=== PATIENT | male | born 1980 | race Caucasian/White ===

== ENCOUNTER 2019-06-21 18:25 | Observation (INO) | payer BC, OTHER ==
[2019-06-21] MEDS ORDERED: Sodium Chloride 0.9% 1,000 ML IV ONE ×2 (19:18→22:47)
[2019-06-21] MEDS ORDERED: Ondansetron 4 MG/2 ML SDV IVPUSH ONE ×2 (19:18→22:47)
[2019-06-21] MEDS ORDERED: Ketorolac 30 MG/ML SDV IVPUSH ONE (19:18)
--- NOTE | 2019-06-21 19:21 | EDM.PDOC ---
ED HPI GENERAL MEDICAL PROBLEM - General Chief Complaint: Abdominal Pain Stated Complaint: ABD PAIN Time Seen by Provider: 06/21/19 19:13 - History of Present Illness INITIAL COMMENTS - FREE TEXT/NARRATIVE: HISTORY AND PHYSICAL: History of present illness: Patient is a 39-year-old white male who presents with concern of abdominal pain 3 days he states is primarily across his upper abdomen he has been somewhat bloated he denies vomiting or diarrhea he states there has been a GI bug going through the house at home and his children have suffered from similar he denies fever chills chest pain shortness breath or other concern Review of systems: As per history of present illness and below otherwise all systems reviewed and negative. Past medical history: As per history of present illness and as reviewed below otherwise noncontributory. Surgical history: As per history of present illness and as reviewed below otherwise noncontributory. Social history: No reported history of drug or alcohol abuse. Family history: As per history of present illness and as reviewed below otherwise noncontributory. Physical exam: HEENT: Atraumatic, normocephalic, pupils reactive, negative for conjunctival pallor or scleral icterus, mucous membranes moist, throat clear, neck supple, nontender, trachea midline. Lungs: Clear to auscultation, breath sounds equal bilaterally, chest nontender. Heart: S1S2, regular, negative for clicks, rubs, or JVD. Abdomen: Soft, protuberant with mild tenderness across upper abdomen nonlocalized no rebound no guarding. Negative for masses or hepatosplenomegaly. Negative for costovertebral tenderness. Pelvis: Stable nontender. Genitourinary: Deferred. Rectal: Deferred. Extremities: Atraumatic, negative for cords or calf pain. Neurovascular unremarkable. Neuro: Awake, alert, oriented. Cranial nerves II through XII unremarkable. Cerebellum unremarkable. Motor and sensory unremarkable throughout. Exam nonfocal. Diagnostics: CBC CMP lipase acute abdominal series with chest x-ray EKG abdominal ultrasound [employer]: Saline 1 L bolus Zofran 4 mg IV Toradol 30 mg IV Impression: #1 upper abdominal pain Definitive disposition and diagnosis as appropriate pending reevaluation and review of above. Abdomen Pain Score (Numeric/FACES): 8 - Related Data Allergies Allergy/AdvReac Type Severity Reaction Status Date / Time No Known Allergies Allergy Verified 06/21/19 18:59 Home Meds: Home Meds Lisinopril [Prinivil] 10 mg PO DAILY 06/21/19 [History] Past Medical History HEENT History: Reports: None Cardiovascular History: Reports: Hypertension Respiratory History: Reports: None Gastrointestinal History: Reports: None Genitourinary History: Reports: None Musculoskeletal History: Reports: None Neurological History: Reports: None Psychiatric History: Reports: None Endocrine/Metabolic History: Reports: None Hematologic History: Reports: None Immunologic History: Reports: None Oncologic (Cancer) History: Reports: None Dermatologic History: Reports: None - Infectious Disease History Infectious Disease History: Reports: None - Past Surgical History Head Surgeries/Procedures: Reports: None Social & Family History - Tobacco Use Smoking Status *Q: Never Smoker Second Hand Smoke Exposure: No - Caffeine Use Caffeine Use: Reports: None - Recreational Drug Use Recreational Drug Use: No ED ROS GENERAL - Review of Systems Review Of Systems: Comprehensive ROS is negative, except as noted in HPI. ED EXAM, GENERAL - Physical Exam Exam: See Below (See dictation) Course - Vital Signs Last Recorded V/S: Last Vital Signs Temp 36.6 C 06/21/19 18:57 Pulse 85 06/21/19 18:57 Resp 20 06/21/19 18:57 BP 168/91 H 06/21/19 18:57 Pulse Ox 98 06/21/19 18:57 - Orders/Labs/Meds Orders: Active Orders 24 hr Category Date Time Status EKG Documentation Completion [RC] STAT Care 06/21/19 19:17 Active Pulse Oximetry [RC] ASDIRECTED Care 06/21/19 19:17 Active Labs: Laboratory Tests 06/21/19 06/21/19 06/21/19 Range/Units 19:15 19:20 19:20 WBC 14.80 H (4.0-11.0) K/uL RBC 5.43 (4.50-5.90) M/uL Hgb 15.8 (13.0-17.0) g/dL Hct 46.3 (38.0-50.0) % MCV 85.3 (80.0-98.0) fL MCH 29.1 (27.0-32.0) pg MCHC 34.1 (31.0-37.0) g/dL RDW Std Deviation 38.6 (28.0-62.0) fl RDW Coeff of Indira 13 (11.0-15.0) % Plt Count 186 (150-400) K/uL MPV 10.40 (7.40-12.00) fL Neut % (Auto) 73.9 (48.0-80.0) % Lymph % (Auto) 12.7 L (16.0-40.0) % [place] % (Auto) 11.6 (0.0-15.0) % Eos % (Auto) 1.6 (0.0-7.0) % Baso % (Auto) 0.2 (0.0-1.5) % Neut # (Auto) 10.9 H (1.4-5.7) K/uL Lymph # (Auto) 1.9 (0.6-2.4) K/uL [place] # (Auto) 1.7 H (0.0-0.8) K/uL Eos # (Auto) 0.2 (0.0-0.7) K/uL Baso # (Auto) 0.0 (0.0-0.1) K/uL Nucleated RBC % 0.0 /100WBC Nucleated RBCs # 0 K/uL INR 1.00 Sodium (136-148) mmol/L Potassium (3.5-5.1) mmol/L Chloride (98-107) mmol/L Carbon Dioxide (21.0-32.0) mmol/L BUN (7.0-18.0) mg/dL Creatinine (0.8-1.3) mg/dL Est Cr Clr Drug Dosing mL/min Estimated GFR (MDRD) ml/min Glucose (74-106) mg/dL Calcium (8.5-10.1) mg/dL Total Bilirubin (0.2-1.0) mg/dL AST (15-37) IU/L ALT (14-63) IU/L Alkaline Phosphatase (46-116) U/L Total Protein (6.4-8.2) g/dL Albumin (3.4-5.0) g/dL Globulin (2.6-4.0) g/dL Albumin/Globulin Ratio (0.9-1.6) Lipase (73-393) U/L Urine Color YELLOW Urine Appearance CLOUDY Urine pH 7.0 (5.0-8.0) Ur Specific [place] 1.020 (1.001-1.035) Urine Protein 30 H (NEGATIVE) mg/dL Urine Glucose (UA) NEGATIVE (NEGATIVE) mg/dL Urine Ketones NEGATIVE (NEGATIVE) mg/dL Urine Occult Blood NEGATIVE (NEGATIVE) Urine Nitrite NEGATIVE (NEGATIVE) Urine Bilirubin NEGATIVE (NEGATIVE) Urine Urobilinogen 0.2 (<2.0) EU/dL Ur Leukocyte Esterase NEGATIVE (NEGATIVE) Urine RBC 0-2 (0-2/HPF) Urine WBC 3-5 (0-5/HPF) Ur Epithelial Cells FEW (NONE-FEW) Amorphous Sediment HEAVY (NEGATIVE) Urine Bacteria FEW (NEGATIVE) Urine Mucus MODERATE (NONE-MOD) 06/21/19 Range/Units 19:20 WBC (4.0-11.0) K/uL RBC (4.50-5.90) M/uL Hgb (13.0-17.0) g/dL Hct (38.0-50.0) % MCV (80.0-98.0) fL MCH (27.0-32.0) pg MCHC (31.0-37.0) g/dL RDW Std Deviation (28.0-62.0) fl RDW Coeff of Indira (11.0-15.0) % Plt Count (150-400) K/uL MPV (7.40-12.00) fL Neut % (Auto) (48.0-80.0) % Lymph % (Auto) (16.0-40.0) % [place] % (Auto) (0.0-15.0) % Eos % (Auto) (0.0-7.0) % Baso % (Auto) (0.0-1.5) % Neut # (Auto) (1.4-5.7) K/uL Lymph # (Auto) (0.6-2.4) K/uL [place] # (Auto) (0.0-0.8) K/uL Eos # (Auto) (0.0-0.7) K/uL Baso # (Auto) (0.0-0.1) K/uL Nucleated RBC % /100WBC Nucleated RBCs # K/uL INR Sodium 138 (136-148) mmol/L Potassium 3.7 (3.5-5.1) mmol/L Chloride 102 (98-107) mmol/L Carbon Dioxide 26.7 (21.0-32.0) mmol/L BUN 8 (7.0-18.0) mg/dL Creatinine 1.0 (0.8-1.3) mg/dL Est Cr Clr Drug Dosing 104.58 mL/min Estimated GFR (MDRD) > 60.0 ml/min Glucose 119 H (74-106) mg/dL Calcium 8.6 (8.5-10.1) mg/dL Total Bilirubin 0.7 (0.2-1.0) mg/dL AST 12 L (15-37) IU/L ALT 42 (14-63) IU/L Alkaline Phosphatase 61 (46-116) U/L Total Protein 8.0 (6.4-8.2) g/dL Albumin 4.0 (3.4-5.0) g/dL Globulin 4.0 (2.6-4.0) g/dL Albumin/Globulin Ratio 1.0 (0.9-1.6) Lipase 2623 H (73-393) U/L Urine Color Urine Appearance Urine pH (5.0-8.0) Ur Specific [place] (1.001-1.035) Urine Protein (NEGATIVE) mg/dL Urine Glucose (UA) (NEGATIVE) mg/dL Urine Ketones (NEGATIVE) mg/dL Urine Occult Blood (NEGATIVE) Urine Nitrite (NEGATIVE) Urine Bilirubin (NEGATIVE) Urine Urobilinogen (<2.0) EU/dL Ur Leukocyte Esterase (NEGATIVE) Urine RBC (0-2/HPF) Urine WBC (0-5/HPF) Ur Epithelial Cells (NONE-FEW) Amorphous Sediment (NEGATIVE) Urine Bacteria (NEGATIVE) Urine Mucus (NONE-MOD) Meds: Medications Discontinued Medications Generic Name Dose Route Start Last Admin Trade Name Freq PRN Reason Stop Dose Admin Sodium Chloride 1,000 mls @ 999 mls/hr 06/21/19 19:18 06/21/19 19:27 Normal Saline IV 06/21/19 20:18 999 mls/hr STAT ONE Administration Iopamidol 100 ml 06/21/19 21:55 06/21/19 21:56 Isovue-370 (76%) IVPUSH 06/21/19 21:56 100 ml ONETIME STA Administration Ketorolac Tromethamine 30 mg 06/21/19 19:18 06/21/19 19:28 Toradol IVPUSH 06/21/19 19:19 30 mg ONETIME ONE Administration Ondansetron HCl 4 mg 06/21/19 19:18 06/21/19 19:27 Zofran IVPUSH 06/21/19 19:19 4 mg ONETIME ONE Administration Departure - Departure Time of Disposition: 22:47 Disposition: Refer to Observation Condition: Good Clinical Impression: Abdominal pain, Pancreatitis - Discharge Information Referrals: Antoine Taylor MD [Primary Care Provider] - Forms: ED Department Discharge - My Orders Last 24 Hours: My Active Orders 06/21/19 19:17 EKG Documentation Completion [RC] STAT Pulse Oximetry [RC] ASDIRECTED - Assessment/Plan Last 24 Hours: My Active Orders 06/21/19 19:17 EKG Documentation Completion [RC] STAT Pulse Oximetry [RC] ASDIRECTED
[2019-06-21 19:57] LABS: BLOOD UREA NITROGEN,BUN 8 mg/dL (7.0-18.0); CARBON DIOXIDE,CO2 26.7 mmol/L (21.0-32.0); CHLORIDE,CL 102 mmol/L (98-107); GLUCOSE RANDOM 119 mg/dL (74-106); POTASSIUM,K 3.7 mmol/L (3.5-5.1); SODIUM,NA 138 mmol/L (136-148)
--- NOTE | 2019-06-21 20:07 | US ---
INDICATION: Gastric pain for the past few days. COMPARISON: None available. TECHNIQUE: Ultrasound examination of the right upper quadrant was performed. FINDINGS: There is normal appearance of the gallbladder, with no sign of cholelithiasis or acute cholecystitis. There is no sign of gallbladder wall thickening or pericholecystic fluid. A sonographic Teague sign is not present. The common bile duct is normal in caliber at 2 mm. The pancreatic head and body were examined, and these are normal in appearance. The abdominal aorta and visualized portions of the inferior vena cava are normal in appearance. The liver shows no sign of mass or contour abnormality, and there is no sign of ascites. Increased hepatic echogenicity is consistent with fatty infiltration of the liver. The right kidney is unremarkable. IMPRESSION: Fatty infiltration of the liver. Otherwise normal right upper quadrant ultrasound. Dictated by Konrad Carpio MD @ Jun 21 2019 7:59PM Signed by Dr. Konrad Carpio @ Jun 21 2019 8:07PM
[2019-06-21 20:18] LABS: LIPASE 2623 U/L (73-393)
--- NOTE | 2019-06-21 20:19 | CR ---
INDICATION: Abdominal pain TECHNIQUE: Abdomen 3 view. COMPARISON: None FINDINGS: Bowel: Bowel pattern is normal. Colonic fecal retention. Soft tissues: No sign of free air. No sign of soft tissue mass. No suspicious calcifications. Bones: Unremarkable for age. IMPRESSION: Colonic fecal retention. Dictated by Alexander Das MD @ 06/21/2019 8:16:36 PM Dictated by: Alexander Das MD @ 06/21/2019 20:16:46 (Electronically Signed)
[2019-06-21] MEDS ORDERED: Iopamidol 755 Mg/ML 100 ML Bottle IVPUSH STA (21:55)
--- NOTE | 2019-06-21 22:31 | CT ---
INDICATION: Abdominal pain, no bowel movement in a few days TECHNIQUE: CT abdomen and pelvis acquired with IV contrast. COMPARISON: None FINDINGS: Lower chest: Unremarkable. Liver: Hepatic steatosis. Spleen: Unremarkable. Pancreas: Fat stranding adjacent to the pancreatic head. Correlate with abnormal amylase and lipase. Gallbladder and bile ducts: Unremarkable. Kidneys: Unremarkable. Adrenal glands: Unremarkable. GI tract: Thickening of 2nd 3rd portion of the duodenum. Appendix is not definitely demonstrated. Colonic fecal retention involving the ascending colon. Vascular structures: Unremarkable. Lymph nodes: Unremarkable. Miscellaneous: Fat containing umbilical hernia. No free air or significant free fluid. Pelvic Organs: Unremarkable. Bones: Unremarkable for age. IMPRESSION: Peripancreatic fat stranding adjacent to the pancreatic head with thickening of the adjacent 2nd 3rd portions of the duodenum. Correlate with abnormal amylase and lipase for pancreatitis. Hepatic steatosis. Colonic fecal retention involving the ascending colon. Dictated by Alexander Das MD @ 06/21/2019 10:29:15 PM Please note that all CT scans at this facility use dose modulation, iterative reconstruction, and/or weight-based dosing when appropriate to reduce radiation dose to as low as reasonably achievable. Dictated by: Alexander Das MD @ 06/21/2019 22:29:30 (Electronically Signed)
[2019-06-21] MEDS ORDERED: HYDROmorphone 1 MG/ML Syringe IVPUSH ONE (22:47)
[2019-06-22] MEDS ORDERED: Albuterol/Ipratropium 3.0-0.5 MG/3 ML Neb Soln NEB PRN (00:06)
[2019-06-22] MEDS ORDERED: Sodium Chloride 0.9% 1,000 ML IV SCH (00:15)
[2019-06-22] MEDS: Heparin Sodium 5,000 Units/ML Vial SUBCUT SCH ×3 (00:42→16:16)
[2019-06-22] MEDS: Morphine 2 MG/ML Syringe IVPUSH PRN ×2 (02:51→05:13)
[2019-06-22] MEDS: Ondansetron 4 MG/2 ML SDV IVPUSH PRN ×2 (03:02→23:12)
[2019-06-22 05:52] LABS: BLOOD UREA NITROGEN,BUN 7 mg/dL (7.0-18.0); CARBON DIOXIDE,CO2 26.1 mmol/L (21.0-32.0); CHLORIDE,CL 104 mmol/L (98-107); GLUCOSE RANDOM 116 mg/dL (74-106); POTASSIUM,K 3.9 mmol/L (3.5-5.1); SODIUM,NA 139 mmol/L (136-148)
--- NOTE | 2019-06-22 08:04 | PCM.HP.2 ---
H&P History of Present Illness - General Date of Service: 06/22/19 Admit Problem/Dx: Admission Diagnosis/Problem Admission Diagnosis/Problem Pancreatitis Source of Information: Patient History Limitations: Reports: No Limitations - History of Present Illness Initial Comments - Free Text/Narative: This 39 year old male with pmh of hypertension prsented to the ED with complaints of abdominal pain x 3 days. He reports this pain is located in his upper abdomen and spreads to the back. He reports mild nausea, no diarrhea. He reports his children were sick with a 24 hour GI bug a few days ago but they are feeling better now. He denies chest pain or SOB. No black of bloody BMs, reports constipation since Wednesday, which is not normal for him. He denies fevers , chills or URI symptoms. He denies alcohol use, no recreational drug use and no tobacco use. In the ED Leukocytosis noted at 14,800, BMP WNL. Lipase elevated at 2623. CXR revealed for acute cardiopulmonary process, colonic retention noted. Abd US obtained which was negative. CT abd/pelvis obtained which revealed pancreatic fat stranding and thickening within the duodenem. He was given IVFs in the ED along with Dilaudid for pain. He was admitted for acute pancreatitis. PCP, Dr Taylor Abdomen Pain Score (Numeric/FACES): 8 - Related Data Allergies/Adverse Reactions: Allergies Allergy/AdvReac Type Severity Reaction Status Date / Time No Known Allergies Allergy Verified 06/22/19 00:20 Home Medications: Home Meds Lisinopril [Prinivil] 10 mg PO DAILY 06/21/19 [History] Past Medical History HEENT History: Reports: None Cardiovascular History: Reports: Hypertension (started on Lisinopril 2 weeks ago for HTN). Denies: Afib, CAD, PA Respiratory History: Reports: None. Denies: COPD Gastrointestinal History: Reports: None Genitourinary History: Reports: None Musculoskeletal History: Reports: None Neurological History: Reports: None Psychiatric History: Reports: None Endocrine/Metabolic History: Reports: None. Denies: Diabetes, Type II Hematologic History: Reports: None Immunologic History: Reports: None Oncologic (Cancer) History: Reports: None Dermatologic History: Reports: None - Infectious Disease History Infectious Disease History: Reports: None - Past Surgical History Head Surgeries/Procedures: Reports: None Social & Family History - Family History Cardiac: Reports: Hypertension - Tobacco Use Smoking Status *Q: Never Smoker Second Hand Smoke Exposure: No - Caffeine Use Caffeine Use: Reports: Soda - Alcohol Use Alcohol Use History: No Alcohol Use Frequency: Rarely, Socially - Recreational Drug Use Recreational Drug Use: No - Living Situation & Occupation Living situation: Reports: Occupation: Employed H&P Review of Systems - Review of Systems: Review Of Systems: See Below General: Reports: Malaise. Denies: Fever, Chills HEENT: Reports: No Symptoms. Denies: Headaches, Sinus Congestion, Vertigo Pulmonary: Reports: No Symptoms. Denies: Shortness of Breath Cardiovascular: Reports: No Symptoms. Denies: Chest Pain Gastrointestinal: Reports: Abdominal Pain (upper epigastric and R UQ), Constipation, Decreased Appetite, Nausea. Denies: Black Stool, Bloody Stool, Diarrhea, Vomiting Genitourinary: Reports: No Symptoms. Denies: Dysuria, Frequency Musculoskeletal: Reports: No Symptoms Skin: Reports: No Symptoms Psychiatric: Reports: No Symptoms Neurological: Reports: No Symptoms Hematologic/Lymphatic: Reports: No Symptoms Immunologic: Reports: No Symptoms Exam - Exam Exam: See Below - Vital Signs Vital Signs: Last Vital Signs Temp 97.8 F 06/22/19 04:06 Pulse 80 06/22/19 04:06 Resp 19 06/22/19 04:06 BP 156/83 H 06/22/19 04:06 Pulse Ox 96 06/22/19 04:06 Weight: 129.274 kg - Exam General: Alert, Oriented, Cooperative Neck: Supple, Trachea Midline Lungs: Clear to Auscultation, Normal Respiratory Effort GI/Abdominal Exam: Normal Bowel Sounds, Soft, Tender (RUQ and epigastric region) Back Exam: Normal Inspection, Full Range of Motion Extremities: Normal Inspection, Normal Range of Motion, Non-Tender, No Pedal Edema Neuro Extensive - Mental Status: Alert, Oriented x3 Neuro Extensive - Motor, Sensory, Reflexes: CN II-XII Intact - Patient Data Lab Results Last 24 hrs: Laboratory Results - last 24 hr 06/21/19 06/21/19 06/21/19 Range/Units 19:15 19:20 19:20 WBC 14.80 H (4.0-11.0) K/uL RBC 5.43 (4.50-5.90) M/uL Hgb 15.8 (13.0-17.0) g/dL Hct 46.3 (38.0-50.0) % MCV 85.3 (80.0-98.0) fL MCH 29.1 (27.0-32.0) pg MCHC 34.1 (31.0-37.0) g/dL RDW Std Deviation 38.6 (28.0-62.0) fl RDW Coeff of Indira 13 (11.0-15.0) % Plt Count 186 (150-400) K/uL MPV 10.40 (7.40-12.00) fL Neut % (Auto) 73.9 (48.0-80.0) % Lymph % (Auto) 12.7 L (16.0-40.0) % [place] % (Auto) 11.6 (0.0-15.0) % Eos % (Auto) 1.6 (0.0-7.0) % Baso % (Auto) 0.2 (0.0-1.5) % Neut # (Auto) 10.9 H (1.4-5.7) K/uL Lymph # (Auto) 1.9 (0.6-2.4) K/uL [place] # (Auto) 1.7 H (0.0-0.8) K/uL Eos # (Auto) 0.2 (0.0-0.7) K/uL Baso # (Auto) 0.0 (0.0-0.1) K/uL Nucleated RBC % 0.0 /100WBC Nucleated RBCs # 0 K/uL INR 1.00 Sodium (136-148) mmol/L Potassium (3.5-5.1) mmol/L Chloride (98-107) mmol/L Carbon Dioxide (21.0-32.0) mmol/L BUN (7.0-18.0) mg/dL Creatinine (0.8-1.3) mg/dL Est Cr Clr Drug Dosing mL/min Estimated GFR (MDRD) ml/min Glucose (74-106) mg/dL Calcium (8.5-10.1) mg/dL Phosphorus (2.6-4.7) mg/dL Magnesium (1.8-2.4) mg/dL Total Bilirubin (0.2-1.0) mg/dL AST (15-37) IU/L ALT (14-63) IU/L Alkaline Phosphatase (46-116) U/L Total Protein (6.4-8.2) g/dL Albumin (3.4-5.0) g/dL Globulin (2.6-4.0) g/dL Albumin/Globulin Ratio (0.9-1.6) Lipase (73-393) U/L Urine Color YELLOW Urine Appearance CLOUDY Urine pH 7.0 (5.0-8.0) Ur Specific [place] 1.020 (1.001-1.035) Urine Protein 30 H (NEGATIVE) mg/dL Urine Glucose (UA) NEGATIVE (NEGATIVE) mg/dL Urine Ketones NEGATIVE (NEGATIVE) mg/dL Urine Occult Blood NEGATIVE (NEGATIVE) Urine Nitrite NEGATIVE (NEGATIVE) Urine Bilirubin NEGATIVE (NEGATIVE) Urine Urobilinogen 0.2 (<2.0) EU/dL Ur Leukocyte Esterase NEGATIVE (NEGATIVE) Urine RBC 0-2 (0-2/HPF) Urine WBC 3-5 (0-5/HPF) Ur Epithelial Cells FEW (NONE-FEW) Amorphous Sediment HEAVY (NEGATIVE) Urine Bacteria FEW (NEGATIVE) Urine Mucus MODERATE (NONE-MOD) 06/21/19 06/22/19 06/22/19 Range/Units 19:20 05:25 05:25 WBC 13.88 H (4.0-11.0) K/uL RBC 5.04 (4.50-5.90) M/uL Hgb 14.3 (13.0-17.0) g/dL Hct 43.3 (38.0-50.0) % MCV 85.9 (80.0-98.0) fL MCH 28.4 (27.0-32.0) pg MCHC 33.0 (31.0-37.0) g/dL RDW Std Deviation 39.4 (28.0-62.0) fl RDW Coeff of [place]ira 13 (11.0-15.0) % Plt Count 173 (150-400) K/uL MPV 10.10 (7.40-12.00) fL Neut % (Auto) 73.5 (48.0-80.0) % Lymph % (Auto) 12.8 L (16.0-40.0) % [place] % (Auto) 11.7 (0.0-15.0) % Eos % (Auto) 1.9 (0.0-7.0) % Baso % (Auto) 0.1 (0.0-1.5) % Neut # (Auto) 10.2 H (1.4-5.7) K/uL Lymph # (Auto) 1.8 (0.6-2.4) K/uL [place] # (Auto) 1.6 H (0.0-0.8) K/uL Eos # (Auto) 0.3 (0.0-0.7) K/uL Baso # (Auto) 0.0 (0.0-0.1) K/uL Nucleated RBC % 0.0 /100WBC Nucleated RBCs # 0 K/uL INR Sodium 138 139 (136-148) mmol/L Potassium 3.7 3.9 (3.5-5.1) mmol/L Chloride 102 104 (98-107) mmol/L Carbon Dioxide 26.7 26.1 (21.0-32.0) mmol/L BUN 8 7 (7.0-18.0) mg/dL Creatinine 1.0 0.9 (0.8-1.3) mg/dL Est Cr Clr Drug Dosing 104.58 116.20 mL/min Estimated GFR (MDRD) > 60.0 > 60.0 ml/min Glucose 119 H 116 H (74-106) mg/dL Calcium 8.6 8.2 L (8.5-10.1) mg/dL Phosphorus 2.5 L (2.6-4.7) mg/dL Magnesium 2.0 (1.8-2.4) mg/dL Total Bilirubin 0.7 (0.2-1.0) mg/dL AST 12 L (15-37) IU/L ALT 42 (14-63) IU/L Alkaline Phosphatase 61 (46-116) U/L Total Protein 8.0 (6.4-8.2) g/dL Albumin 4.0 (3.4-5.0) g/dL Globulin 4.0 (2.6-4.0) g/dL Albumin/Globulin Ratio 1.0 (0.9-1.6) Lipase 2623 H (73-393) U/L Urine Color Urine Appearance Urine pH (5.0-8.0) Ur Specific [place] (1.001-1.035) Urine Protein (NEGATIVE) mg/dL Urine Glucose (UA) (NEGATIVE) mg/dL Urine Ketones (NEGATIVE) mg/dL Urine Occult Blood (NEGATIVE) Urine Nitrite (NEGATIVE) Urine Bilirubin (NEGATIVE) Urine Urobilinogen (<2.0) EU/dL Ur Leukocyte Esterase (NEGATIVE) Urine RBC (0-2/HPF) Urine WBC (0-5/HPF) Ur Epithelial Cells (NONE-FEW) Amorphous Sediment (NEGATIVE) Urine Bacteria (NEGATIVE) Urine Mucus (NONE-MOD) Result Diagrams: 06/22/19 05:25 06/22/19 05:25 - Problem List (1) Pancreatitis SNOMED Code(s): 67279461 ICD Code: K85.90 - ACUTE PANCREATITIS WITHOUT NECROSIS OR INFECTION, UNSP Status: Acute Current Visit: Yes Qualifiers: Chronicity: acute Pancreatitis type: unspecified pancreatitis type (2) Abdominal pain SNOMED Code(s): 63678958 ICD Code: R10.9 - UNSPECIFIED ABDOMINAL PAIN Status: Acute Current Visit : Yes (3) HTN (hypertension) SNOMED Code(s): 24280237 ICD Code: I10 - ESSENTIAL (PRIMARY) HYPERTENSION Status: Chronic Current Visit: Yes (4) Obesity SNOMED Code(s): 753579177, 716092160 ICD Code: E66.9 - OBESITY, UNSPECIFIED Status: Chronic Current Visit: Yes Problem List Initiated/Reviewed/Updated: Yes Orders Last 24hrs: Active Orders 24 hr Category Date Time Status Patient Status [ADT] Stat ADT 06/21/19 22:47 Active Ambulate [RC] ASDIRECTED Care 06/22/19 00:06 Active Blood Glucose Check, Bedside [RC] WITHMEALSANDBED Care 06/22/19 00:06 Active Influenza Vaccine Charge [RC] .DISCHARGE Care 06/22/19 02:32 Active Oxygen Therapy [RC] PRN Care 06/22/19 00:06 Active Pulse Oximetry [RC] ASDIRECTED Care 06/21/19 19:17 Active RT Aerosol Therapy [RC] ASDIRECTED Care 06/22/19 00:09 Active VTE/DVT Education [RC] PER UNIT ROUTINE Care 06/22/19 00:06 Active Vital Signs [RC] Q4H Care 06/22/19 00:06 Active Nothing per Oral Now Diet [DIET] Diet 06/22/19 Breakfast Active LIPASE [CHEM] Routine Lab 06/22/19 08:00 Ordered LIPID PANEL [CHEM] Routine Lab 06/22/19 08:00 Ordered Albuterol/Ipratropium [DuoNeb 3.0-0.5 MG/3 ML] Med 06/22/19 00:06 Active 3 ml NEB Q4HRRT PRN Bisacodyl [Dulcolax] Med 06/22/19 08:03 Ordered 10 mg RECTAL DAILY PRN FLU Vacc [id number](6MOS+)/PF [Fluzone Quad Med 06/22/19 10:00 Once Syringe] 60 mcg IM .ONCE ONE HYDROmorphone [Dilaudid] Med 06/22/19 08:02 Ordered 1 mg IVPUSH Q3H PRN Heparin Sodium Med 06/22/19 00:15 Active 5,000 units SUBCUT Q8H Ketorolac [Toradol] Med 06/22/19 06:09 Active 15 mg IVPUSH Q6H PRN Ondansetron [Zofran] Med 06/22/19 00:06 Active 4 mg IVPUSH Q4H PRN Pantoprazole [ProTONIX IV] 40 mg Med 06/22/19 09:00 Active Sodium Chloride 0.9% [Normal Saline] 10 ml IV DAILY Sodium Chloride 0.9% [Normal Saline] 1,000 ml Med 06/22/19 08:02 Ordered IV ASDIRECTED Resuscitation Status Routine Resus Stat 06/22/19 00:06 Ordered Medication Orders Albuterol/Ipratropium (Duoneb 3.0-0.5 Mg/3 Ml) 3 ml NEB Q4HRRT PRN PRN Reason: Shortness Of Breath/wheezing Bisacodyl (Dulcolax) 10 mg RECTAL DAILY PRN PRN Reason: Constipation Heparin Sodium (Porcine) (Heparin Sodium) 5,000 units SUBCUT Q8H [facility] Last Admin: 06/22/19 00:42 Dose: 5,000 units Hydromorphone HCl (Dilaudid) 1 mg IVPUSH Q3H PRN PRN Reason: Pain Pantoprazole Sodium 40 mg/ (Sodium Chloride) 10 mls @ 300 mls/hr IV DAILY TOMMIE Sodium Chloride (Normal Saline) 1,000 mls @ 200 mls/hr IV ASDIRECTED TOMMIE Influenza Virus Vaccine (Fluzone Quad [id number] Syringe) 60 mcg IM .ONCE ONE Stop: 06/22/19 10:01 Ketorolac Tromethamine (Toradol) 15 mg IVPUSH Q6H PRN PRN Reason: Pain (severe 7-10) Stop: 06/27/19 06:09 Ondansetron HCl (Zofran) 4 mg IVPUSH Q4H PRN PRN Reason: Nausea/Vomiting Last Admin: 06/22/19 03:02 Dose: 4 mg Assessment/Plan Comment:: THis 39 year old male admitted with abdominal pain found to have acute pancreatitis 1. Acute pancreatitis: No gallstone or cholecystitis, Triglycerides WNL. Had a couple beers a few days ago, otherwise drinks very rarely. Consider duodenitis from viral gastroenteritis or drug induced, he was recently started on Lisinopril 2 weeks ago. Will discontinue Lisinopril. Start Amlodipine 5 mg and monitor. Increase IVF to NS 200 l hr. Lipase improved since admission, 1500 today. Will continue bowel rest as he continues to have abdominal pain. Will give dulcolax supp for constipation. repeat labwork in am. 2. HTN: Slighlty elevated, may be pain induced. Will DC Lisinopril. Start Amlodipine 5 mg. VTE prophylaxis: SCDs. Dispo: 1-2 days pending improvement. - Mortality Measure Prognosis:: Good
[2019-06-22] MEDS: Ketorolac 15 MG/ML SDV IVPUSH PRN ×3 (08:21→20:26)
[2019-06-22] MEDS: Sodium Chloride 0.9% 1,000 ML IV SCH ×4 (08:41→23:04)
[2019-06-22] MEDS ORDERED: FLU Vacc QS2019-20(6MOS+)/PF 60 MCG/0.5 ML SYRINGE IM ONE (10:00)
[2019-06-22] MEDS: Pantoprazole 40 MG in Sodium Chloride 0.9% 10 ML IV SCH (10:07)
[2019-06-22] MEDS: Bisacodyl 10 MG Supp RECTAL PRN (11:00)
[2019-06-22] MEDS: HYDROmorphone 1 MG/ML Syringe IVPUSH PRN ×3 (11:28→23:54)
[2019-06-22] MEDS: amLODIPine 5 MG Tab PO SCH (11:53)
[2019-06-23] MEDS: Heparin Sodium 5,000 Units/ML Vial SUBCUT SCH ×4 (00:03→23:35)
[2019-06-23] MEDS: Ketorolac 15 MG/ML SDV IVPUSH PRN ×2 (02:49→09:37)
[2019-06-23] MEDS: Sodium Chloride 0.9% 1,000 ML IV SCH ×4 (03:45→22:05)
[2019-06-23] MEDS: HYDROmorphone 1 MG/ML Syringe IVPUSH PRN ×4 (05:22→23:35)
[2019-06-23 06:34] LABS: BLOOD UREA NITROGEN,BUN 13 mg/dL (7.0-18.0); CARBON DIOXIDE,CO2 26.9 mmol/L (21.0-32.0); CHLORIDE,CL 107 mmol/L (98-107); GLUCOSE RANDOM 102 mg/dL (74-106); LIPASE 894 U/L (73-393); POTASSIUM,K 4.2 mmol/L (3.5-5.1); SODIUM,NA 140 mmol/L (136-148)
--- NOTE | 2019-06-23 08:48 | PCM.PN ---
- General Info Date of Service: 06/23/19 Admission Dx/Problem (Free Text): Admission Diagnosis/Problem Admission Diagnosis/Problem Pancreatitis Subjective Update: Attempted to work towards discharged today, but continued to have significant abdominal pain and requested more pain medication. Will decrease diet to CL and restart medications. Functional Status: Reports: Tolerating Diet, Ambulating, Urinating. Denies: Pain Controlled - Review of Systems Pulmonary: Reports: No Symptoms. Denies: Shortness of Breath Cardiovascular: Reports: No Symptoms. Denies: Chest Pain Gastrointestinal: Reports: Abdominal Pain, Constipation. Denies: Nausea, Vomiting Musculoskeletal: Reports: No Symptoms Skin: Reports: No Symptoms Neurological: Reports: No Symptoms Psychiatric: Reports: No Symptoms - Patient Data Vitals - Most Recent: Last Vital Signs Temp 98 F 06/23/19 07:00 Pulse 85 06/23/19 07:00 Resp 12 06/23/19 07:00 BP 140/70 06/23/19 07:00 Pulse Ox 90 L 06/23/19 07:00 Weight - Most Recent: 129.274 kg I&O - Last 24 Hours: Intake & Output 06/22/19 06/23/19 06/23/19 22:59 06:59 14:59 Intake Total 2514 2251 Output Total 1400 575 Balance 1114 1746 Lab Results Last 24 Hours: Laboratory Results - last 24 hr 06/22/19 06/22/19 06/23/19 Range/Units 10:07 11:23 05:54 WBC 10.76 (4.0-11.0) K/uL RBC 4.50 (4.50-5.90) M/uL Hgb 12.9 L (13.0-17.0) g/dL Hct 39.3 (38.0-50.0) % MCV 87.3 (80.0-98.0) fL MCH 28.7 (27.0-32.0) pg MCHC 32.8 (31.0-37.0) g/dL RDW Std Deviation 39.7 (28.0-62.0) fl RDW Coeff of Indira 12 (11.0-15.0) % Plt Count 143 L (150-400) K/uL MPV 10.20 (7.40-12.00) fL Neut % (Auto) 66.7 (48.0-80.0) % Lymph % (Auto) 16.7 (16.0-40.0) % [place] % (Auto) 13.1 (0.0-15.0) % Eos % (Auto) 3.3 (0.0-7.0) % Baso % (Auto) 0.2 (0.0-1.5) % Neut # (Auto) 7.2 H (1.4-5.7) K/uL Lymph # (Auto) 1.8 (0.6-2.4) K/uL [place] # (Auto) 1.4 H (0.0-0.8) K/uL Eos # (Auto) 0.4 (0.0-0.7) K/uL Baso # (Auto) 0.0 (0.0-0.1) K/uL Nucleated RBC % 0.0 /100WBC Nucleated RBCs # 0 K/uL Sodium (136-148) mmol/L Potassium (3.5-5.1) mmol/L Chloride (98-107) mmol/L Carbon Dioxide (21.0-32.0) mmol/L BUN (7.0-18.0) mg/dL Creatinine (0.8-1.3) mg/dL Est Cr Clr Drug Dosing mL/min Estimated GFR (MDRD) ml/min Glucose (74-106) mg/dL POC Glucose 99 91 (60-110) mg/dL Calcium (8.5-10.1) mg/dL Total Bilirubin (0.2-1.0) mg/dL AST (15-37) IU/L ALT (14-63) IU/L Alkaline Phosphatase (46-116) U/L Total Protein (6.4-8.2) g/dL Albumin (3.4-5.0) g/dL Globulin (2.6-4.0) g/dL Albumin/Globulin Ratio (0.9-1.6) Lipase (73-393) U/L 06/23/19 Range/Units 05:54 WBC (4.0-11.0) K/uL RBC (4.50-5.90) M/uL Hgb (13.0-17.0) g/dL Hct (38.0-50.0) % MCV (80.0-98.0) fL MCH (27.0-32.0) pg MCHC (31.0-37.0) g/dL RDW Std Deviation (28.0-62.0) fl RDW Coeff of Indira (11.0-15.0) % Plt Count (150-400) K/uL MPV (7.40-12.00) fL Neut % (Auto) (48.0-80.0) % Lymph % (Auto) (16.0-40.0) % [place] % (Auto) (0.0-15.0) % Eos % (Auto) (0.0-7.0) % Baso % (Auto) (0.0-1.5) % Neut # (Auto) (1.4-5.7) K/uL Lymph # (Auto) (0.6-2.4) K/uL [place] # (Auto) (0.0-0.8) K/uL Eos # (Auto) (0.0-0.7) K/uL Baso # (Auto) (0.0-0.1) K/uL Nucleated RBC % /100WBC Nucleated RBCs # K/uL Sodium 140 (136-148) mmol/L Potassium 4.2 (3.5-5.1) mmol/L Chloride 107 (98-107) mmol/L Carbon Dioxide 26.9 (21.0-32.0) mmol/L BUN 13 (7.0-18.0) mg/dL Creatinine 0.8 (0.8-1.3) mg/dL Est Cr Clr Drug Dosing 130.73 mL/min Estimated GFR (MDRD) > 60.0 ml/min Glucose 102 (74-106) mg/dL POC Glucose (60-110) mg/dL Calcium 8.1 L (8.5-10.1) mg/dL Total Bilirubin 0.6 (0.2-1.0) mg/dL AST 8 L (15-37) IU/L ALT 26 (14-63) IU/L Alkaline Phosphatase 41 L (46-116) U/L Total Protein 6.4 (6.4-8.2) g/dL Albumin 2.8 L (3.4-5.0) g/dL Globulin 3.6 (2.6-4.0) g/dL Albumin/Globulin Ratio 0.8 L (0.9-1.6) Lipase 894 H (73-393) U/L Med Orders - Current: Current Medications Albuterol/Ipratropium (Duoneb 3.0-0.5 Mg/3 Ml) 3 ml NEB Q4HRRT PRN PRN Reason: Shortness Of Breath/wheezing Amlodipine Besylate (Norvasc) 5 mg PO DAILY [facility] Last Admin: 06/22/19 11:53 Dose: 5 mg Bisacodyl (Dulcolax) 10 mg RECTAL DAILY PRN PRN Reason: Constipation Last Admin: 06/22/19 11:00 Dose: 10 mg Heparin Sodium (Porcine) (Heparin Sodium) 5,000 units SUBCUT Q8H [facility] Last Admin: 06/23/19 00:03 Dose: 5,000 units Hydromorphone HCl (Dilaudid) 1 mg IVPUSH Q3H PRN PRN Reason: Pain Last Admin: 06/23/19 05:22 Dose: 1 mg Pantoprazole Sodium 40 mg/ (Sodium Chloride) 10 mls @ 300 mls/hr IV DAILY [facility] Last Admin: 06/22/19 10:07 Dose: 300 mls/hr Sodium Chloride (Normal Saline) 1,000 mls @ 125 mls/hr IV ASDIRECTED [facility] Ketorolac Tromethamine (Toradol) 15 mg IVPUSH Q6H PRN PRN Reason: Pain (severe 7-10) Stop: 06/27/19 06:09 Last Admin: 06/23/19 02:49 Dose: 15 mg Ondansetron HCl (Zofran) 4 mg IVPUSH Q4H PRN PRN Reason: Nausea/Vomiting Last Admin: 06/22/19 23:12 Dose: 4 mg Discontinued Medications Hydromorphone HCl (Dilaudid) 1 mg IVPUSH ONETIME ONE Stop: 06/21/19 22:48 Last Admin: 06/21/19 23:03 Dose: 1 mg Sodium Chloride (Normal Saline) 1,000 mls @ 999 mls/hr IV STAT ONE Stop: 06/21/19 20:18 Last Admin: 06/21/19 19:27 Dose: 999 mls/hr Sodium Chloride (Normal Saline) 1,000 mls @ 999 mls/hr IV .Bolus ONE Stop: 06/21/19 23:47 Last Admin: 06/21/19 23:03 Dose: 999 mls/hr Sodium Chloride (Normal Saline) 1,000 mls @ 125 mls/hr IV ASDIRECTED [facility] Last Admin: 06/22/19 00:45 Dose: 125 mls/hr Sodium Chloride (Normal Saline) 1,000 mls @ 200 mls/hr IV ASDIRECTED [facility] Last Admin: 06/23/19 03:45 Dose: 200 mls/hr Influenza Virus Vaccine (Pharmacy To Dose - Influenza Vaccine) 1 each IM ONETIME ONE Stop: 06/22/19 12:01 Influenza Virus Vaccine (Fluzone Quad Syringe) 60 mcg IM .ONCE ONE Stop: 06/22/19 10:01 Iopamidol (Isovue-370 (76%)) 100 ml IVPUSH ONETIME STA Stop: 06/21/19 21:56 Last Admin: 06/21/19 21:56 Dose: 100 ml Ketorolac Tromethamine (Toradol) 30 mg IVPUSH ONETIME ONE Stop: 06/21/19 19:19 Last Admin: 06/21/19 19:28 Dose: 30 mg Morphine Sulfate (Morphine) 2 mg IVPUSH Q2H PRN PRN Reason: Pain (severe 7-10) Stop: 06/23/19 00:08 Last Admin: 06/22/19 05:13 Dose: 2 mg Ondansetron HCl (Zofran) 4 mg IVPUSH ONETIME ONE Stop: 06/21/19 19:19 Last Admin: 06/21/19 19:27 Dose: 4 mg Ondansetron HCl (Zofran) 4 mg IVPUSH ONETIME ONE Stop: 06/21/19 22:48 Last Admin: 06/21/19 23:03 Dose: 4 mg - Exam Lungs: Clear to Auscultation, Normal Respiratory Effort Cardiovascular: Regular Rate, Regular Rhythm GI/Abdominal Exam: Normal Bowel Sounds, Soft, Tender (epigastric) Extremities: Normal Inspection, Normal Range of Motion, Non-Tender Neurological: No New Focal Deficit Psy/Mental Status: Alert, Normal Affect, Normal Mood - Problem List & Annotations (1) Pancreatitis SNOMED Code(s): 68002001 Code(s): K85.90 - ACUTE PANCREATITIS WITHOUT NECROSIS OR INFECTION, UNSP Status: Acute Current Visit: Yes Qualifiers: Chronicity: acute Pancreatitis type: unspecified pancreatitis type (2) Abdominal pain SNOMED Code(s): 69052310 Code(s): R10.9 - UNSPECIFIED ABDOMINAL PAIN Status: Acute Current Visit: Yes (3) HTN (hypertension) SNOMED Code(s): 83860622 Code(s): I10 - ESSENTIAL (PRIMARY) HYPERTENSION Status: Chronic Current Visit: Yes (4) Obesity SNOMED Code(s): 530917727, 227984532 Code(s): E66.9 - OBESITY, UNSPECIFIED Status: Chronic Current Visit: Yes - Problem List Review Problem List Initiated/Reviewed/Updated: Yes - My Orders Last 24 Hours: My Active Orders 06/22/19 08:02 HYDROmorphone [Dilaudid] 1 mg IVPUSH Q3H PRN 06/22/19 08:03 Bisacodyl [Dulcolax] 10 mg RECTAL DAILY PRN 06/22/19 11:45 amLODIPine [Norvasc] 5 mg PO DAILY 06/23/19 08:47 Sodium Chloride 0.9% [Normal Saline] 1,000 ml IV ASDIRECTED 06/23/19 Breakfast Clear Liquid Diet [DIET] - Plan Plan:: THis 39 year old male admitted with abdominal pain found to have acute pancreatitis 1. Acute pancreatitis:Continues to have pain today, CL diet. Continue Dilaudid for pain. Will monitor. Labwork improving. Consider duodenitis from viral gastroenteritis or drug induced, he was recently started on Lisinopril 2 weeks ago. repeat labwork in am. 2. HTN: Improved, continue Amlodipine 5 mg. VTE prophylaxis: SCDs. Dispo: 1-2 days pending improvement.
[2019-06-23] MEDS: amLODIPine 5 MG Tab PO SCH (09:35)
[2019-06-23] MEDS: Pantoprazole 40 MG in Sodium Chloride 0.9% 10 ML IV SCH (09:37)
[2019-06-23 11:53] LABS: HEMOGLOBIN A1C 5.7 % (4.5-6.2)
[2019-06-23] MEDS ORDERED: Ketorolac 10 MG Tab PO ONE (13:58)
[2019-06-23] MEDS ORDERED: Bisacodyl 5 MG Tab PO ONE (21:26)
--- NOTE | 2019-06-23 21:34 | CR ---
TECHNIQUE: Upright abdomen. INDICATION: Abdominal pain. COMPARISON: 06/21/[address] FINDINGS: There are few loops of mildly distended small bowel in the mid abdomen, likely due to focal ileus from the patient`s pancreatitis. Normal colonic gas pattern. No free air. No abnormal mass or calcification. Dictated by Hiro Hopkins MD @ 06/23/2019 9:32:28 PM Dictated by: Hiro Hopkins MD @ 06/23/2019 21:32:39 (Electronically Signed)
[2019-06-23] MEDS ORDERED: Temazepam 15 MG Cap PO ONE (21:47)
[2019-06-24] MEDS ORDERED: Labetalol 100 MG/20 ML MDV IVPUSH ONE (01:03)
[2019-06-24] MEDS: HYDROmorphone 1 MG/ML Syringe IVPUSH PRN ×2 (02:30→05:29)
[2019-06-24] MEDS: Sodium Chloride 0.9% 1,000 ML IV SCH (05:52)
[2019-06-24 06:46] LABS: BLOOD UREA NITROGEN,BUN 10 mg/dL (7.0-18.0); CARBON DIOXIDE,CO2 26.7 mmol/L (21.0-32.0); CHLORIDE,CL 103 mmol/L (98-107); GLUCOSE RANDOM 101 mg/dL (74-106); SODIUM,NA 138 mmol/L (136-148)
[2019-06-24] MEDS ORDERED: Ketorolac 15 MG/ML SDV IVPUSH PRN (07:23)
[2019-06-24] MEDS ORDERED: Morphine 2 MG/ML Syringe IVPUSH PRN (07:24)
[2019-06-24] MEDS: amLODIPine 5 MG Tab PO SCH (08:23)
[2019-06-24] MEDS: Pantoprazole 40 MG in Sodium Chloride 0.9% 10 ML IV SCH (08:24)
[2019-06-24] MEDS: Heparin Sodium 5,000 Units/ML Vial SUBCUT SCH (08:24)
[2019-06-24] MEDS: Bisacodyl 10 MG Supp RECTAL PRN (10:49)
--- NOTE | 2019-06-24 11:07 | PCM.DCSUM1 ---
<Deuce Anderson - Last Filed: 06/24/19 15:19> Discharge Summary - Hospital Course Free Text/Narrative:: 39 y/o male with a history of hypertension who presented to the ER complaining of abdominal pain. He was admitted for acute pancreatitis. CT abdomen/pelvis showed fatty stranding around pancreas. He was put NPO and hydrated. Pain was controlled. Lipase improved from 2600 down to 400 at time of discharge. He was able to tolerate liquid diet and pain was more tolerable. His home lisinopril was discontinued and he was started on amlodipine 10 mg PO daily for hypertension. He was discharged with [place] 5 mg PO Q8H PRN (#12), amlodipine 10 mg PO daily and metoclopramide. Instructions to slowly advance his diet. Follow -up with his PCP and GI. - Discharge Data Discharge Date: 06/24/19 Discharge Disposition: Home, Self-Care 01 Condition: Good - Referral to Home Health Primary Care Physician: Antoine Taylor MD - Patient Instructions Diet: Mechanical Soft Diet, Other: advance diet as tolerated. Activity: As Tolerated - Discharge Plan *PRESCRIPTION DRUG MONITORING PROGRAM REVIEWED*: No *COPY OF PRESCRIPTION DRUG MONITORING REPORT IN PATIENT HEATHER: No Prescriptions/Med Rec: amLODIPine Besylate [Norvasc] 10 mg PO DAILY #30 tablet Hydrocodone/Acetaminophen [[place] 5-325 Tablet] 1 each PO Q8H PRN #12 tablet PRN Reason: Pain Metoclopramide HCl [Metoclopramide HCl Odt] 5 mg PO TID 7 Days #21 tabdajuan Omeprazole 20 mg PO DAILY 14 Days #14 tab Home Medications: Home Meds Hydrocodone/Acetaminophen [[place] 5-325 Tablet] 1 each PO Q8H PRN #12 tablet [Rx] Metoclopramide HCl [Metoclopramide HCl Odt] 5 mg PO TID 7 Days #21 marcello [Rx] Omeprazole 20 mg PO DAILY 14 Days #14 tab 06/24/19 [Rx] amLODIPine Besylate [Norvasc] 10 mg PO DAILY #30 tablet 06/24/19 [Rx] Patient Handouts: Acetaminophen; Hydrocodone tablets or capsules, Metoclopramide tablets, Acute Pancreatitis, [id number], Amlodipine tablets, Omeprazole tablets (OTC) Referrals: Antoine Taylor MD [Primary Care Provider] - 07/03/19 2:45 pm - Discharge Summary/Plan Comment DC Time >30 min.: No - Patient Data Vitals - Most Recent: Last Vital Signs Temp 36.3 C 06/24/19 08:00 Pulse 84 06/24/19 08:00 Resp 18 06/24/19 08:00 BP 154/88 H 06/24/19 08:23 Pulse Ox 92 L 06/24/19 08:00 Weight - Most Recent: 129.274 kg I&O - Last 24 hours: Intake & Output 06/23/19 06/24/19 06/24/19 22:59 06:59 14:59 Intake Total 1843 2115 Output Total 500 1450 Balance 1343 665 Lab Results - Last 24 hrs: Laboratory Results - last 24 hr 06/23/19 06/24/19 06/24/19 Range/Units 05:54 05:35 05:35 WBC 10.62 (4.0-11.0) K/uL RBC 4.50 (4.50-5.90) M/uL Hgb 12.9 L (13.0-17.0) g/dL Hct 38.6 (38.0-50.0) % MCV 85.8 (80.0-98.0) fL MCH 28.7 (27.0-32.0) pg MCHC 33.4 (31.0-37.0) g/dL RDW Std Deviation 37.9 (28.0-62.0) fl RDW Coeff of Indira 12 (11.0-15.0) % Plt Count 173 (150-400) K/uL MPV 10.60 (7.40-12.00) fL Neut % (Auto) 67.0 (48.0-80.0) % Lymph % (Auto) 16.9 (16.0-40.0) % [place] % (Auto) 11.6 (0.0-15.0) % Eos % (Auto) 4.3 (0.0-7.0) % Baso % (Auto) 0.2 (0.0-1.5) % Neut # (Auto) 7.1 H (1.4-5.7) K/uL Lymph # (Auto) 1.8 (0.6-2.4) K/uL [place] # (Auto) 1.2 H (0.0-0.8) K/uL Eos # (Auto) 0.5 (0.0-0.7) K/uL Baso # (Auto) 0.0 (0.0-0.1) K/uL Nucleated RBC % 0.0 /100WBC Nucleated RBCs # 0 K/uL Sodium 138 (136-148) mmol/L Potassium 4.0 (3.5-5.1) mmol/L Chloride 103 (98-107) mmol/L Carbon Dioxide 26.7 (21.0-32.0) mmol/L BUN 10 (7.0-18.0) mg/dL Creatinine 0.7 L (0.8-1.3) mg/dL Est Cr Clr Drug Dosing 149.40 mL/min Estimated GFR (MDRD) > 60.0 ml/min Glucose 101 (74-106) mg/dL Hemoglobin A1c 5.7 (4.5-6.2) % Calcium 7.8 L (8.5-10.1) mg/dL Total Bilirubin 0.6 (0.2-1.0) mg/dL AST 11 L (15-37) IU/L ALT 30 (14-63) IU/L Alkaline Phosphatase 46 (46-116) U/L Total Protein 6.2 L (6.4-8.2) g/dL Albumin 3.1 L (3.4-5.0) g/dL Globulin 3.1 (2.6-4.0) g/dL Albumin/Globulin Ratio 1.0 (0.9-1.6) Lipase (73-393) U/L 06/24/19 Range/Units 05:35 WBC (4.0-11.0) K/uL RBC (4.50-5.90) M/uL Hgb (13.0-17.0) g/dL Hct (38.0-50.0) % MCV (80.0-98.0) fL MCH (27.0-32.0) pg MCHC (31.0-37.0) g/dL RDW Std Deviation (28.0-62.0) fl RDW Coeff of Indira (11.0-15.0) % Plt Count (150-400) K/uL MPV (7.40-12.00) fL Neut % (Auto) (48.0-80.0) % Lymph % (Auto) (16.0-40.0) % [place] % (Auto) (0.0-15.0) % Eos % (Auto) (0.0-7.0) % Baso % (Auto) (0.0-1.5) % Neut # (Auto) (1.4-5.7) K/uL Lymph # (Auto) (0.6-2.4) K/uL [place] # (Auto) (0.0-0.8) K/uL Eos # (Auto) (0.0-0.7) K/uL Baso # (Auto) (0.0-0.1) K/uL Nucleated RBC % /100WBC Nucleated RBCs # K/uL Sodium (136-148) mmol/L Potassium (3.5-5.1) mmol/L Chloride (98-107) mmol/L Carbon Dioxide (21.0-32.0) mmol/L BUN (7.0-18.0) mg/dL Creatinine (0.8-1.3) mg/dL Est Cr Clr Drug Dosing mL/min Estimated GFR (MDRD) ml/min Glucose (74-106) mg/dL Hemoglobin A1c (4.5-6.2) % Calcium (8.5-10.1) mg/dL Total Bilirubin (0.2-1.0) mg/dL AST (15-37) IU/L ALT (14-63) IU/L Alkaline Phosphatase (46-116) U/L Total Protein (6.4-8.2) g/dL Albumin (3.4-5.0) g/dL Globulin (2.6-4.0) g/dL Albumin/Globulin Ratio (0.9-1.6) Lipase 428 H (73-393) U/L Med Orders - Current: Current Medications Albuterol/Ipratropium (Duoneb 3.0-0.5 Mg/3 Ml) 3 ml NEB Q4HRRT PRN PRN Reason: Shortness Of Breath/wheezing Amlodipine Besylate (Norvasc) 5 mg PO DAILY [facility] Last Admin: 06/24/19 08:23 Dose: 5 mg Bisacodyl (Dulcolax) 10 mg RECTAL DAILY PRN PRN Reason: Constipation Last Admin: 06/24/19 10:49 Dose: 10 mg Heparin Sodium (Porcine) (Heparin Sodium) 5,000 units SUBCUT Q8H [facility] Last Admin: 06/24/19 08:24 Dose: 5,000 units Pantoprazole Sodium 40 mg/ (Sodium Chloride) 10 mls @ 300 mls/hr IV DAILY [facility] Last Admin: 06/24/19 08:24 Dose: 300 mls/hr Sodium Chloride (Normal Saline) 1,000 mls @ 125 mls/hr IV ASDIRECTED [facility] Last Admin: 06/24/19 05:52 Dose: 125 mls/hr Ketorolac Tromethamine (Toradol) 15 mg IVPUSH Q6H PRN PRN Reason: Pain Stop: 06/29/19 07:23 Morphine Sulfate (Morphine) 2 mg IVPUSH Q3H PRN PRN Reason: Pain Ondansetron HCl (Zofran) 4 mg IVPUSH Q4H PRN PRN Reason: Nausea/Vomiting Last Admin: 06/22/19 23:12 Dose: 4 mg Discontinued Medications Bisacodyl (Dulcolax) 10 mg PO ONETIME ONE Stop: 06/23/19 21:27 Last Admin: 06/23/19 22:01 Dose: 10 mg Hydromorphone HCl (Dilaudid) 1 mg IVPUSH ONETIME ONE Stop: 06/21/19 22:48 Last Admin: 06/21/19 23:03 Dose: 1 mg Hydromorphone HCl (Dilaudid) 1 mg IVPUSH Q3H PRN PRN Reason: Pain Last Admin: 06/23/19 05:22 Dose: 1 mg Hydromorphone HCl (Dilaudid) 1 mg IVPUSH Q3H PRN PRN Reason: Pain Last Admin: 06/24/19 05:29 Dose: 1 mg Sodium Chloride (Normal Saline) 1,000 mls @ 999 mls/hr IV STAT ONE Stop: 06/21/19 20:18 Last Admin: 06/21/19 19:27 Dose: 999 mls/hr Sodium Chloride (Normal Saline) 1,000 mls @ 999 mls/hr IV .Bolus ONE Stop: 06/21/19 23:47 Last Admin: 06/21/19 23:03 Dose: 999 mls/hr Sodium Chloride (Normal Saline) 1,000 mls @ 125 mls/hr IV ASDIRECTED [facility] Last Admin: 06/22/19 00:45 Dose: 125 mls/hr Sodium Chloride (Normal Saline) 1,000 mls @ 200 mls/hr IV ASDIRECTED [facility] Last Admin: 06/23/19 03:45 Dose: 200 mls/hr Influenza Virus Vaccine (Pharmacy To Dose - Influenza Vaccine) 1 each IM ONETIME ONE Stop: 06/22/19 12:01 Influenza Virus Vaccine (Fluzone Quad [id number] Syringe) 60 mcg IM .ONCE ONE Stop: 06/22/19 10:01 Iopamidol (Isovue-370 (76%)) 100 ml IVPUSH ONETIME STA Stop: 06/21/19 21:56 Last Admin: 06/21/19 21:56 Dose: 100 ml Ketorolac Tromethamine (Toradol) 30 mg IVPUSH ONETIME ONE Stop: 06/21/19 19:19 Last Admin: 06/21/19 19:28 Dose: 30 mg Ketorolac Tromethamine (Toradol) 15 mg IVPUSH Q6H PRN PRN Reason: Pain (severe 7-10) Stop: 06/27/19 06:09 Last Admin: 06/23/19 09:37 Dose: 15 mg Ketorolac Tromethamine (Toradol) 10 mg PO ONETIME ONE Stop: 06/23/19 13:59 Last Admin: 06/23/19 14:26 Dose: 10 mg Labetalol HCl (Normodyne) 10 mg IVPUSH ONETIME ONE; Protocol Stop: 06/24/19 01:04 Last Admin: 06/24/19 01:14 Dose: 2 ml Morphine Sulfate (Morphine) 2 mg IVPUSH Q2H PRN PRN Reason: Pain (severe 7-10) Stop: 06/23/19 00:08 Last Admin: 06/22/19 05:13 Dose: 2 mg Ondansetron HCl (Zofran) 4 mg IVPUSH ONETIME ONE Stop: 06/21/19 19:19 Last Admin: 06/21/19 19:27 Dose: 4 mg Ondansetron HCl (Zofran) 4 mg IVPUSH ONETIME ONE Stop: 06/21/19 22:48 Last Admin: 06/21/19 23:03 Dose: 4 mg Temazepam (Restoril) 15 mg PO ONETIME ONE Stop: 06/23/19 21:48 Last Admin: 06/23/19 22:01 Dose: 15 mg <Marissa Tang - Last Filed: 06/26/19 19:39> Discharge Summary - Hospital Course HPI Initial Comments: I have seen and evaluated the patient and agree with the residents note unless specified in my note - Referral to Home Health Primary Care Physician: Antoine Taylor MD - Patient Data Vitals - Most Recent: Last Vital Signs Temp 36.3 C 06/24/19 08:00 Pulse 84 06/24/19 08:00 Resp 18 06/24/19 08:00 BP 154/88 H 06/24/19 08:23 Pulse Ox 92 L 06/24/19 08:00 Med Orders - Current: Current Medications Discontinued Medications Albuterol/Ipratropium (Duoneb 3.0-0.5 Mg/3 Ml) 3 ml NEB Q4HRRT PRN PRN Reason: Shortness Of Breath/wheezing Amlodipine Besylate (Norvasc) 5 mg PO DAILY [facility] Last Admin: 06/24/19 08:23 Dose: 5 mg Bisacodyl (Dulcolax) 10 mg RECTAL DAILY PRN PRN Reason: Constipation Last Admin: 06/24/19 10:49 Dose: 10 mg Bisacodyl (Dulcolax) 10 mg PO ONETIME ONE Stop: 06/23/19 21:27 Last Admin: 06/23/19 22:01 Dose: 10 mg Heparin Sodium (Porcine) (Heparin Sodium) 5,000 units SUBCUT Q8H [facility] Last Admin: 06/24/19 08:24 Dose: 5,000 units Hydromorphone HCl (Dilaudid) 1 mg IVPUSH ONETIME ONE Stop: 06/21/19 22:48 Last Admin: 06/21/19 23:03 Dose: 1 mg Hydromorphone HCl (Dilaudid) 1 mg IVPUSH Q3H PRN PRN Reason: Pain Last Admin: 06/23/19 05:22 Dose: 1 mg Hydromorphone HCl (Dilaudid) 1 mg IVPUSH Q3H PRN PRN Reason: Pain Last Admin: 06/24/19 05:29 Dose: 1 mg Sodium Chloride (Normal Saline) 1,000 mls @ 999 mls/hr IV STAT ONE Stop: 06/21/19 20:18 Last Admin: 06/21/19 19:27 Dose: 999 mls/hr Sodium Chloride (Normal Saline) 1,000 mls @ 999 mls/hr IV .Bolus ONE Stop: 06/21/19 23:47 Last Admin: 06/21/19 23:03 Dose: 999 mls/hr Sodium Chloride (Normal Saline) 1,000 mls @ 125 mls/hr IV ASDIRECTED [facility] Last Admin: 06/22/19 00:45 Dose: 125 mls/hr Pantoprazole Sodium 40 mg/ (Sodium Chloride) 10 mls @ 300 mls/hr IV DAILY [facility] Last Admin: 06/24/19 08:24 Dose: 300 mls/hr Sodium Chloride (Normal Saline) 1,000 mls @ 200 mls/hr IV ASDIRECTED [facility] Last Admin: 06/23/19 03:45 Dose: 200 mls/hr Sodium Chloride (Normal Saline) 1,000 mls @ 125 mls/hr IV ASDIRECTED [facility] Last Admin: 06/24/19 05:52 Dose: 125 mls/hr Influenza Virus Vaccine (Pharmacy To Dose - Influenza Vaccine) 1 each IM ONETIME ONE Stop: 06/22/19 12:01 Influenza Virus Vaccine (Fluzone Quad Syringe) 60 mcg IM .ONCE ONE Stop: 06/22/19 10:01 Influenza Virus Vaccine (Fluzone Quad Syringe) 60 mcg IM .ONCE ONE Stop: 06/24/19 11:46 Last Admin: 06/24/19 12:14 Dose: 60 mcg Iopamidol (Isovue-370 (76%)) 100 ml IVPUSH ONETIME STA Stop: 06/21/19 21:56 Last Admin: 06/21/19 21:56 Dose: 100 ml Ketorolac Tromethamine (Toradol) 30 mg IVPUSH ONETIME ONE Stop: 06/21/19 19:19 Last Admin: 06/21/19 19:28 Dose: 30 mg Ketorolac Tromethamine (Toradol) 15 mg IVPUSH Q6H PRN PRN Reason: Pain (severe 7-10) Stop: 06/27/19 06:09 Last Admin: 06/23/19 09:37 Dose: 15 mg Ketorolac Tromethamine (Toradol) 10 mg PO ONETIME ONE Stop: 06/23/19 13:59 Last Admin: 06/23/19 14:26 Dose: 10 mg Ketorolac Tromethamine (Toradol) 15 mg IVPUSH Q6H PRN PRN Reason: Pain Stop: 06/29/19 07:23 Last Admin: 06/24/19 13:04 Dose: 15 mg Labetalol HCl (Normodyne) 10 mg IVPUSH ONETIME ONE; Protocol Stop: 06/24/19 01:04 Last Admin: 06/24/19 01:14 Dose: 2 ml Morphine Sulfate (Morphine) 2 mg IVPUSH Q2H PRN PRN Reason: Pain (severe 7-10) Stop: 06/23/19 00:08 Last Admin: 06/22/19 05:13 Dose: 2 mg Morphine Sulfate (Morphine) 2 mg IVPUSH Q3H PRN PRN Reason: Pain Ondansetron HCl (Zofran) 4 mg IVPUSH ONETIME ONE Stop: 06/21/19 19:19 Last Admin: 06/21/19 19:27 Dose: 4 mg Ondansetron HCl (Zofran) 4 mg IVPUSH ONETIME ONE Stop: 06/21/19 22:48 Last Admin: 06/21/19 23:03 Dose: 4 mg Ondansetron HCl (Zofran) 4 mg IVPUSH Q4H PRN PRN Reason: Nausea/Vomiting Last Admin: 06/22/19 23:12 Dose: 4 mg Simethicone (Simethicone) 80 mg PO ONETIME ONE Stop: 06/24/19 12:51 Last Admin: 06/24/19 12:55 Dose: 80 mg Temazepam (Restoril) 15 mg PO ONETIME ONE Stop: 06/23/19 21:48 Last Admin: 06/23/19 22:01 Dose: 15 mg
[2019-06-24] MEDS ORDERED: FLU Vacc QS2019-20(6MOS+)/PF 60 MCG/0.5 ML SYRINGE IM ONE (11:45)
[2019-06-24] MEDS ORDERED: Simethicone 80 MG Tab.Chew PO ONE (12:50)
== END 2019-06-24 15:45 | disposition home or self-care (01) ==
LOC: MW.ED 18:25 → MW.MS 22:47
PROVIDERS: ADMIT Student in an Organized Health Care Education/Training Program; ATTEND Student in an Organized Health Care Education/Training Program
DX: K85.90 Acute pancreatitis without necrosis or infection, unspecified (principal); I10 Essential (primary) hypertension; E66.9 Obesity, unspecified; Z68.39 Body mass index [BMI] 39.0-39.9, adult
CPT/HCPCS: 36415; 74018; 74022; 74177; 76705; 80048; 80053; 80061; 81001; 82962; 83036; 83690; 83735; 84100; 85025; 85610; 90686; 93005; 96361; 96374; 96375; 96376; 99285; A9270; C9113; J1170; J1644; J1885; J2270; J2405; J3490; J7040; J7050; Q9967; 96372; 99283; G0008; G0378; J7030

== ENCOUNTER 2023-12-11 05:57 | Emergency (ER) | payer BC ==
[2023-12-11] MEDS: Sodium Chloride 0.9% 10 ML Syringe FLUSH PRN (06:53)
[2023-12-11] MEDS: Sodium Chloride 0.9% 2.5 ML Syringe FLUSH PRN (06:53)
[2023-12-11] MEDS: Sodium Chloride 0.9% 1,000 ML IV STA (06:53)
[2023-12-11 07:16] LABS: BASOPHILS ABSOLUTE AUTO 0.06 K/uL (0.00-0.20); BASOPHILS PERCENT AUTO 0.5 % (0.0-1.0); EOSINOPHILS ABSOLUTE AUTO 0.12 K/uL (0.00-0.45); EOSINOPHILS PERCENT AUTO 1.1 % (0.0-6.0); HEMATOCRIT 43.8 % (42.0-52.0); HEMOGLOBIN 15.1 g/dL (14.0-18.0); IMMATURE GRAN ABSOLUTE AUTO 0.06 K/uL (0.00-0.05); IMMATURE GRAN PERCENT AUTO 0.5 % (0.0-0.4); LYMPHOCYTES ABSOLUTE AUTO 1.53 K/uL (1.00-4.80); LYMPHOCYTES PERCENT AUTO 13.5 % (24.0-44.0); MEAN CORPUSCULAR HEMOGLOBIN 28.5 pg (28.0-32.0); MEAN CORPUSCULAR HGB CONC 34.5 g/dL (32.0-36.0); MEAN CORPUSCULAR VOLUME 82.8 fL (83.0-99.0); MEAN PLATELET VOLUME 10.2 fL (9.4-12.4); MONOCYTES ABSOLUTE AUTO 0.89 K/uL (0.00-0.80); MONOCYTES PERCENT AUTO 7.9 % (0.0-8.0); NEUTROPHILS ABSOLUTE AUTO 8.67 K/uL (1.80-7.70); NEUTROPHILS PERCENT AUTO 76.5 % (41.0-71.0); PLATELET COUNT,PLT 191 K/uL (150-400); RED BLOOD CELL COUNT 5.29 M/uL (4.52-5.90); WHITE BLOOD CELL COUNT,WBC 11.33 K/uL (3.9-11.3)
[2023-12-11 07:30] LABS: BILIRUBIN,URINE NEGATIVE (NEGATIVE); COLOR,URINE YELLOW; GLUCOSE,URINE NEGATIVE (NEGATIVE); KETONES,URINE NEGATIVE (NEGATIVE); LEUKOCYTE ESTERASE,URINE NEGATIVE (NEGATIVE); NITRITE,URINE NEGATIVE (NEGATIVE); OCCULT BLOOD,URINE LARGE (NEGATIVE); PH,URINE 7.5 (5.0-8.0); PROTEIN,URINE NEGATIVE (NEGATIVE); UROBILINOGEN,URINE 0.2 EU/dL (<2.0)
[2023-12-11 07:33] LABS: APPEARANCE,URINE SLT CLOUDY
[2023-12-11 07:38] LABS: A/G RATIO 1.1 (0.9-1.6); ALBUMIN 3.7 g/dL (3.4-5.0); BILIRUBIN TOTAL 0.5 mg/dL (0.2-1.0); CALCIUM 8.6 mg/dL (8.5-10.1); CARBON DIOXIDE,CO2 26.9 mmol/L (21.0-32.0); CREATININE 1.4 mg/dL (0.8-1.3); EST CRCL DRUG DOSING (CG) 71.71 mL/min; POTASSIUM,K 3.3 mmol/L (3.5-5.1); PROTEIN TOTAL,TP 7.1 g/dL (6.4-8.2)
[2023-12-11 07:38] LABS: BACTERIA,URINE RARE (NEGATIVE); EPITHELIAL CELLS,URINE OCCASIONAL (NONE-FEW); RBC,URINE 50-60 (0-2/HPF); WBC,URINE 0-4 (0-5/HPF)
[2023-12-11] MEDS: Ketorolac 30 MG/ML SDV IVPUSH ONE (07:44)
[2023-12-11 07:55] LABS: LACTIC ACID 1.6 mmol/L (0.4-2.0)
[2023-12-11] MEDS: Acetaminophen/HYDROcodone 325-10 MG Tab PO ONE (09:52)
[2023-12-11] MEDS: Iopamidol 755 MG/ML 500 ML Multipack Bottle IVPUSH STA (11:32)
== END 2023-12-11 10:56 | disposition home or self-care (01) ==
LOC: MW.ED 05:57
DX: N13.2 Hydronephrosis with renal and ureteral calculous obstruction (principal); I10 Essential (primary) hypertension; Z79.899 Other long term (current) drug therapy; Z75.8 Other problems related to medical facilities and other health care
CPT/HCPCS: 36415; 74177; 80053; 81001; 83605; 83690; 85025; 96374; 99284; A9270; J1885; J3490; J7030; Q9967

== ENCOUNTER 2024-10-26 06:53 | Day surgery (SDC) | payer BC ==
[~2024-10-26 06:53] MED LIST: Sodium Chloride 0.9% 10 ML Syringe FLUSH PRN; Sodium Chloride 0.9% 2.5 ML Syringe FLUSH PRN; Sodium Chloride 0.9% 20 ML SDV IV PRN; ceFAZolin 2 GM in Sodium Chloride 0.9% 50 ML IV ONE
[2024-10-26] MEDS ORDERED: Lidocaine 1% 20 ML MDV ONE (07:05)
[2024-10-26] MEDS ORDERED: Bupivacaine 0.5% 30 ML SDV ONE (07:05)
[2024-10-26] MEDS ORDERED: Methylene Blue 50 MG/10 ML Ampule ONE (07:08)
[2024-10-26] MEDS: Lactated Ringers 1,000 ML IV SCH (07:20)
[2024-10-26] MEDS ORDERED: Propofol 200 MG/20 ML SDV ONE (07:26)
[2024-10-26] MEDS ORDERED: dexmedeTOMIDine HCl 200 MCG/2 ML SDV ONE (07:26)
[2024-10-26] MEDS ORDERED: fentaNYL 100 MCG/2 ML SDV ONE (07:26)
[2024-10-26] MEDS ORDERED: Ondansetron 4 MG/2 ML SDV ONE (07:27)
[2024-10-26] MEDS ORDERED: Sodium Chloride 0.9% 20 ML ONE (07:30)
[2024-10-26] MEDS ORDERED: Metoclopramide 10 MG/2 ML SDV IVPUSH PRN (07:31)
[2024-10-26] MEDS ORDERED: Phenylephrine HCl In 0.9% NaCl 1 MG/10 ML Syringe IVPUSH PRN (07:31)
[2024-10-26] MEDS ORDERED: Morphine 2 MG/ML SYRINGE IVPUSH PRN (07:31)
[2024-10-26] MEDS ORDERED: Naloxone 0.4 MG/ML SDV IVPUSH PRN (07:31)
[2024-10-26] MEDS ORDERED: Albuterol 0.083% 2.5 MG/3 ML Neb Soln NEB PRN (07:31)
[2024-10-26] MEDS ORDERED: Ondansetron 4 MG/2 ML SDV IVPUSH PRN (07:31)
[2024-10-26] MEDS ORDERED: fentaNYL 50 MCG/ML SDV IVPUSH PRN (07:31)
[2024-10-26] MEDS ORDERED: HYDROmorphone 1 MG/ML Syringe IVPUSH PRN (07:31)
[2024-10-26] MEDS ORDERED: propofoL 500 MG/50 ML 50 ML ONE ×2 (07:58→08:26)
[2024-10-26] MEDS ORDERED: Ketamine HCL/NACL, ISO-OSM 50 MG/5 ML Syringe ONE (08:05)
[2024-10-26] MEDS ORDERED: ceFAZolin 3 GM Vial ONE (08:11)
[2024-10-26] MEDS ORDERED: Ketorolac 30 MG/ML SDV ONE (09:20)
== END 2024-10-26 10:35 | disposition home or self-care (01) ==
LOC: MW.SDS 06:53
PROVIDERS: ATTEND Surgery
DX: D17.22 Benign lipomatous neoplasm of skin and subcutaneous tissue of left arm (principal); D17.1 Benign lipomatous neoplasm of skin and subcutaneous tissue of trunk; D17.39 Benign lipomatous neoplasm of skin and subcutaneous tissue of other sites; I10 Essential (primary) hypertension; E66.9 Obesity, unspecified; Z79.82 Long term (current) use of aspirin; Z79.899 Other long term (current) drug therapy; Z68.41 Body mass index [BMI] 40.0-44.9, adult
CPT/HCPCS: 19120; 21552; 24071; J0665; J0690; J1885; J2405; J2704; J3010; J7120; 00400; J3490